=== PATIENT | male | born 1990 | race Caucasian/White ===

== ENCOUNTER 2021-04-14 10:07 | Emergency (ER) | payer OTHER ==
[~2021-04-14] VITALS: Ht 185.4 cm; Wt 95.8 kg
--- NOTE | 2021-04-14 12:21 | REP ---
INDICATION: trauma. COMPARISON: None. TECHNIQUE: CT cervical spine performed in the axial plane, with sagittal and coronal reconstruction images performed. FINDINGS: There is no acute compression fracture or malalignment. There is no prevertebral soft tissue swelling. Disc spaces are well preserved. There is mild reversal of the normal cervical lordosis. There is no abnormal density in the spinal canal.There is moderate mucosal thickening in the left maxillary sinus, mild mucosal thickening in the right maxillary sinus IMPRESSION: No evidence of acute fracture or dislocation. <Electronically signed by Young Winkler > 04/14/21 0744
--- NOTE | 2021-04-14 12:34 | REP ---
INDICATION: trauma-fall down stairs. COMPARISON: None. TECHNIQUE: Five views of the lumbar spine are provided. FINDINGS: Lumbar vertebral body heights are preserved alignment is normal. Pedicles and posterior elements appear radiographically intact. No fracture is seen. Psoas margins are symmetric. Sacrum is intact. SI joints are unremarkable. The visualized bony pelvic ring is intact. Disc spaces are maintained. IMPRESSION: No traumatic abnormality noted. Negative lumbar spine radiographs. <Electronically signed by Girish Schofield > 04/14/21 1834
[2021-04-14] MEDS ORDERED: NAPR-837 PO (12:40)
[2021-04-14 12:46] VITALS: BP 136/82
== END 2021-04-14 12:48 | disposition home or self-care (01) ==
LOC: M ED 10:07
DX: S13.9XXA Sprain of joints and ligaments of unspecified parts of neck, initial encounter (principal); S23.8XXA Sprain of other specified parts of thorax, initial encounter; W10.8XXA Fall (on) (from) other stairs and steps, initial encounter; Y92.018 Other place in single-family (private) house as the place of occurrence of the external cause; F17.210 Nicotine dependence, cigarettes, uncomplicated